=== PATIENT | female | born 1985 | race African-American/Black ===

== ENCOUNTER 2018-12-15 11:27 | Emergency (ER) | payer OTHER ==
[~2018-12-15] VITALS: Ht 157.5 cm; Wt 64.4 kg
[2018-12-15] MEDS ORDERED: VASOFLEX TABLE1 EACH (11:58)
[2018-12-15] MEDS ORDERED: ANUCORT-HC25 MG (11:58)
[2018-12-15] MEDS ORDERED: TROMBONEX CAPS1 EACH (11:58)
== END 2018-12-15 15:44 | disposition home or self-care (01) ==
LOC: ER 11:27
DX: K64.8 Other hemorrhoids (principal)